=== PATIENT | female | born 1990 | race Asian ===

== ENCOUNTER 2017-11-03 10:52 | Inpatient (IN) | payer SELFPAY ==
[~2017-11-03] VITALS: Ht 170.2 cm; Wt 90.3 kg
[2017-11-07] MEDS ORDERED: PREN-546 PO (01:49)
[2017-11-07] MEDS ORDERED: LACTATED RINGERS 1,000 ML IV SCH (01:50)
[2017-11-07] MEDS ORDERED: CARBOPROST 250 MCG/ML AMP IM PRN (01:50)
[2017-11-07] MEDS ORDERED: ceFAZolin 2,000 MG in NACL 0.9% 100 ML IV ONE (01:50)
[2017-11-07] MEDS ORDERED: CITRIC ACID/SODIUM CITRATE 30 ML UDC PO ONE (01:50)
[2017-11-07] MEDS ORDERED: METHYLERGONOVINE 0.2 MG/ML AMP IM PRN (01:50)
[2017-11-07 02:17] LABS: BASOPHILS # (AUTO) 0.1 K/uL (0.00-0.22); BASOPHILS % (AUTO) 1.4 % (0.0-2.0); EOSINOPHILS # (AUTO) 0.1 K/uL (0-0.4); EOSINOPHILS % (AUTO) 0.9 % (0.0-4.0); HEMOGLOBIN 11.8 g/dL (12.0-16.0); LYMPHOCYTES # (AUTO) 2.3 K/uL (2.5-16.5); LYMPHOCYTES % (AUTO) 25.6 % (20.5-51.1); MEAN CORPUSCULAR HEMOGLOBIN 26 pg (27-31); MEAN CORPUSCULAR HGB CONC 33 g/dL (33-37); MEAN CORPUSCULAR VOLUME 79.2 fL (80-94); MONOCYTES # (AUTO) 0.5 K/uL (0.8-1.0); MONOCYTES % (AUTO) 5.8 % (1.7-9.3); NEUTROPHILS # (AUTO) 5.9 K/uL (1.8-7.7); NEUTROPHILS % (AUTO) 66.3 % (42.2-75.2); PLATELET COUNT (AUTO) 218 K/uL (140-450); RED BLOOD CELL COUNT(AUTO) 4.54 MIL/uL (4.20-5.40); RED CELL DISTRIBUTION WIDTH 14.1 % (11.6-13.7); WHITE BLOOD COUNT (AUTO) 8.9 K/uL (4.8-10.8)
[2017-11-07 02:17] LABS: APPEARANCE,URINE CLEAR (CLEAR); BILIRUBIN,URINE NEGATIVE (NEGATIVE); BLOOD, URINE NEGATIVE (NEGATIVE); COLOR,URINE YELLOW (YELLOW); LEUKOCYTE ESTERASE ,URINE NEGATIVE (NEGATIVE); NITRITE, URINE NEGATIVE (NEGATIVE); PH,URINE 5.5 (5.0-9.0); UGLUCOSE NEGATIVE (NEGATIVE)
[2017-11-07 02:33] LABS: ALBUMIN 2.8 g/dL (3.4-5.0); ANION GAP 16.5 (8-16); CARBON DIOXIDE 20.4 mmol/L (21-32); CREATININE 0.6 mg/dL (0.6-1.3); POTASSIUM 3.9 mmol/L (3.5-5.1); TOTAL BILIRUBIN 0.4 mg/dL (0.0-1.0)
[2017-11-07 03:25] VITALS: BP 119/75
[2017-11-07] MEDS ORDERED: ceFAZolin 1,000 MG VIAL ONE (07:08)
[2017-11-07] MEDS ORDERED: TRIAMCINOLONE 40 MG/ML 5ML VIAL ONE (07:16)
[2017-11-07] MEDS ORDERED: OXYTOCIN 10 UNITS/ML VIAL ONE (07:16)
[2017-11-07] MEDS ORDERED: CITRIC ACID/SODIUM CITRATE 30 ML UDC ONE (07:20)
[2017-11-07] MEDS ORDERED: OXYTOCIN 10 UNITS/ML VIAL IM ONE (07:30)
[2017-11-07] MEDS ORDERED: ONDANSETRON 4 MG/2 ML VIAL ONE (07:30)
[2017-11-07] MEDS ORDERED: ePHEDrine 50 MG/ML VIAL ONE (07:30)
[2017-11-07] MEDS ORDERED: MIDAZOLAM 2 MG/2 ML VIAL ONE (07:34)
[2017-11-07] MEDS ORDERED: KETAMINE 500 MG/5 ML VIAL ONE (07:34)
[2017-11-07] MEDS ORDERED: fentaNYL 0.05 MG/ML VIAL ONE (07:34)
[2017-11-07] MEDS ORDERED: MORPHINE PRES FREE 10 MG/10 ML AMP IV ONE (07:35)
[2017-11-07] MEDS ORDERED: BUPIVACAINE-MPF 0.5% 10 ML VIAL INJ ONE (07:43)
[2017-11-07] MEDS ORDERED: METHYLERGONOVINE 0.2 MG/ML AMP ONE (08:10)
[2017-11-07] MEDS ORDERED: KETOROLAC 30 MG/ML VIAL IVP PRN (08:25)
[2017-11-07] MEDS ORDERED: diphenhydrAMINE 50 MG/ML VIAL IVP PRN (08:25)
[2017-11-07] MEDS ORDERED: ONDANSETRON 4 MG/2 ML VIAL IVP PRN (08:25)
[2017-11-07] MEDS ORDERED: diphenhydrAMINE 50 MG/ML VIAL ONE (08:40)
[2017-11-07] MEDS ORDERED: OXYTOCIN 20 UNITS/LR PREMIX 1,000 ML IV ONE (09:14)
--- NOTE | 2017-11-07 10:11 | NUR ---
PATIENT HAS BEEN SCREENED AND CATEGORIZED LOW NUTRITION RISK. PATIENT WILL BE SEEN WITHIN 7 DAYS OF ADMISSION. 11/14/[address]
[2017-11-07 11:29] LABS: RAPID PLASMA REAGIN NON-REACTIVE (Non Reactiv)
[2017-11-07] MEDS: OXYTOCIN 20 UNITS in LACTATED RINGERS 1,000 ML IV SCH (16:55)
[2017-11-08] MEDS ORDERED: OXYTOCIN 20 UNITS/LR PREMIX 1,000 ML IV ONE (00:43)
[2017-11-08] MEDS: OXYTOCIN 20 UNITS in LACTATED RINGERS 1,000 ML IV SCH (00:50)
[2017-11-08 06:57] LABS: HEMATOCRIT 31.1 % (36-48); HEMOGLOBIN 10.1 g/dL (12.0-16.0)
[2017-11-08] MEDS ORDERED: IBUPROFEN 800 MG TAB PO PRN (12:00)
[2017-11-08] MEDS ORDERED: BISACODYL 10 MG SUPP RC PRN (12:00)
[2017-11-08] MEDS ORDERED: HYDROcodone/APAP 5/325 MG 1 TAB TAB PO PRN ×5 (12:00→13:10)
[2017-11-08] MEDS ORDERED: SODIUM PHOSPHATE 118 ML ENEM RC PRN (12:55)
[2017-11-08] MEDS ORDERED: SODIUM PHOSPHATE 118 ML ENEM RC SCH (13:00)
[2017-11-08] MEDS ORDERED: BISACODYL 10 MG SUPP RC SCH (13:00)
[2017-11-08] MEDS: BISACODYL 5 MG TABEC PO SCH (21:00)
[2017-11-08] MEDS ORDERED: MEASLES, MUMPS, AND RUBELLA 1 VIAL SQVAC PRN (21:50)
[2017-11-09] MEDS: BISACODYL 5 MG TABEC PO SCH (21:00)
== END 2017-11-10 14:35 | disposition home or self-care (01) | DRG 766 ==
LOC: MLD 11-07 00:30 → MFCC 11-07 09:08
PROVIDERS: ADMIT Obstetrics & Gynecology; ATTEND Obstetrics & Gynecology
PROC: 10D00Z1 Extraction of Products of Conception, Low, Open Approach (ICD-10-PCS; principal; 2017-11-07 07:30)
PROC: 3E0134Z Introduction of Serum, Toxoid and Vaccine into Subcutaneous Tissue, Percutaneous Approach (ICD-10-PCS; 2017-11-08)
DX: O34.211 Maternal care for low transverse scar from previous cesarean delivery (principal); O69.81X0 Labor and delivery complicated by cord around neck, without compression, not applicable or unspecified; Z37.0 Single live birth; Z3A.40 40 weeks gestation of pregnancy; Z23 Encounter for immunization
CPT/HCPCS: 36415; 80053; 81003; 85018; 85025; 86592; 86886; 86900; 86901; 90707; 90715; J0690; J1200; J1885; J2210; J2250; J2270; J2405; J2590; J3010; J3301; J3490; J7030; J7120